=== PATIENT | female | born 1980 | race Caucasian/White ===

== ENCOUNTER 2017-02-21 10:28 | Emergency (ER) | payer SELFPAY ==
[~2017-02-21] VITALS: Ht 157.5 cm; Wt 60.3 kg
[~2017-02-21 10:28] MED LIST: KEFLEX500 MG PO; NAPROSYN500 MG PO; PERCOCET 5/31 TABLET PO
[2017-02-21 11:17] LABS: EOSINOPHIL COUNT 0.1 K/uL (0-0.3); HEMATOCRIT 38.1 % (36.0-46.0); IMMATURE GRANULOCYTE (%) 0.4 % (0.0-0.7); INSTRUMENT ABS NEUTROPHIL CT 2.3 K/uL; LYMPHOCYTE COUNT 1.7 K/uL (1.0-2.8); MCH 30.4 PG (29.0-34.0); MCHC 34.9 G/DL (30.0-36.0); MEAN PLAT.VOLUME 10.8 uM^3 (9.5-12.4); MONOCYTE (%) 9.3 % (3-12); MONOCYTE COUNT 0.4 K/uL (0-0.8); NEUTROPHIL (%) 50.3 % (45-76); NEUTROPHIL COUNT 2.3 K/uL (1.8-6.4); PLATELET COUNT 156 K/uL (156-360); RBC DIS.WIDTH-SD 38.9 % (39-53); RED BLOOD COUNT 4.38 M/uL (3.80-5.20); WHITE BLOOD COUNT 4.6 K/uL (4.1-10.2)
[2017-02-21 11:24] LABS: CHLORIDE 109 mEq/L (99-109); POTASSIUM 3.7 mEq/L (3.7-5.4); SODIUM 138 mEq/L (136-147)
[2017-02-21 11:26] LABS: GLUCOSE 74 mg/dL (70-99)
[2017-02-21 11:28] LABS: ANION GAP 6 MEQ/L (2-14)
[2017-02-21 11:30] LABS: GFR ESTIMATE (CALCULATED) > 59 mL/min/
[2017-02-21 11:31] LABS: UREA NITROGEN (BUN) 6 mg/dL (9-23)
[2017-02-21 11:58] LABS: QUANTITATIVE HCG 25156.6 MIU/ML
[2017-02-21 14:54] VITALS: BP 127/83
== END 2017-02-21 14:55 | disposition home or self-care (01) ==
LOC: EME 10:28
PROVIDERS: Emergency Medicine
DX: Z32.01 Encounter for pregnancy test, result positive (principal); Z3A.01 Less than 8 weeks gestation of pregnancy; Z98.51 Tubal ligation status; F17.200 Nicotine dependence, unspecified, uncomplicated; Z88.6 Allergy status to analgesic agent
CPT/HCPCS: 76801; 80048; 84702; 85025; 99281; 99283

== ENCOUNTER → 2017-07-17 | Outpatient (CLI) | payer OTHER ==
[~2017-07-17] VITALS: Ht 157.5 cm; Wt 70.3 kg
[~2017-07-17] MED LIST changes: +FLINTSTONES CO1 EAC1 PO
[2017-07-17 11:04] VITALS: BP 119/74
== END | disposition home or self-care (01) ==
LOC: IVINF 07-16 11:00
DX: O09.899 Supervision of other high risk pregnancies, unspecified trimester (principal); Z3A.00 Weeks of gestation of pregnancy not specified; Z67.91 Unspecified blood type, Rh negative
CPT/HCPCS: 36415; 86850; 86900; 86901; 96372; J2790

== ENCOUNTER 2017-09-04 08:44 | Outpatient (CLI) | payer OTHER ==
[2017-09-04 09:03] VITALS: BP 125/72
[2017-09-04 10:10] LABS: APPEARANCE SL.HAZY ((CLEAR)); BILIRUBIN NEGATIVE; BLOOD SMALL; COLOR YELLOW ((YELLOW)); GLUCOSE (STRIP) NEGATIVE; KETONES NEGATIVE; LEUKOCYTES TRACE; NITRITE NEGATIVE; PROTEIN (STRIP) NEGATIVE; SPECIFIC GRAVITY 1.014 (1.000-1.030); UROBILINOGEN 0.2 MG/DL (0.2-1.0)
[2017-09-04 10:16] LABS: BACTERIA RARE /HPF; EPITHELIAL CELLS 2+ /HPF; MUCUS TRACE /LPF; RED BLOOD CELLS 0-5 /HPF (0-5); UCUL ADDED? NO; WHITE BLOOD CELLS 0-5 /HPF (0-5)
[2017-09-04 10:28] LABS: AMPHETAMINE NEGATIVE (500 ng/mL); BARBITURATES NEGATIVE (200 ng/mL); BENZODIAZEPINES NEGATIVE (150 ng/mL); BUPRENORPHINE NEGATIVE (10 ng/mL); COCAINE NEGATIVE (150 ng/mL); METHADONE NEGATIVE (200 ng/mL); METHAMPHETAMINE NEGATIVE (500 ng/mL); OPIATES (MORPHINE) NEGATIVE (100 ng/mL); OXYCODONE NEGATIVE (100 ng/mL); PHENCYCLIDINE NEGATIVE (25 ng/mL); PROPOXYPHENE NEGATIVE (300 ng/mL); THC CANNABINOIDS NEGATIVE (50 ng/mL); TRICYCLIC ANTIDEPRESSANTS NEGATIVE (300 ng/mL)
[2017-09-04 13:09] VITALS: BP 124/62
[2017-09-04 21:33] LABS: CANDIDA DNA PROBE NEGATIVE; GARDNERELLA DNA PROBE NEGATIVE; TRICHOMONAS DNA PROBE NEGATIVE
== END 2017-09-04 14:25 | disposition home or self-care (01) ==
LOC: LDRP-OP → 2WEST 08:45 → LDRP-OP 22:46
PROVIDERS: Advanced Practice Midwife
DX: O60.03 Preterm labor without delivery, third trimester (principal); Z3A.34 34 weeks gestation of pregnancy
CPT/HCPCS: 59025; 81003; 87086; 87480; 87510; 87660; G0378; J0702; J7120

== ENCOUNTER 2017-09-05 08:42 | Outpatient (CLI) | payer OTHER ==
[2017-09-05 08:49] VITALS: BP 116/70
== END 2017-09-05 10:33 | disposition home or self-care (01) ==
LOC: LDRP-OP 08:42 → 2WEST 08:43 → LDRP-OP 11-17 14:29
DX: O60.03 Preterm labor without delivery, third trimester (principal); Z3A.34 34 weeks gestation of pregnancy
CPT/HCPCS: 59025; 87086; 87480; 87510; 87660; G0378; J0702

== ENCOUNTER 2017-10-07 08:16 | Inpatient (IN) | payer OTHER ==
[~2017-10-07] VITALS: Ht 157.5 cm; Wt 82.1 kg
[2017-10-07] VITALS (33 sets, daily range): BP systolic 105–163; BP diastolic 58–102
[2017-10-07 10:11] LABS: BASOPHIL (%) 0.1 % (0-1); EOSINOPHIL (%) 0.4 % (0-5); HEMATOCRIT 28.7 % (36.0-46.0); HEMOGLOBIN 9.3 G/DL (11.9-15.5); IMMATURE GRANULOCYTE (%) 1.4 % (0.0-0.7); LYMPHOCYTE (%) 20.9 % (15-42); LYMPHOCYTE COUNT 1.5 K/uL (1.0-2.8); MCH 27.1 PG (29.0-34.0); MCHC 32.4 G/DL (30.0-36.0); MCV 83.7 FL (83-99); MONOCYTE (%) 7.1 % (3-12); MONOCYTE COUNT 0.5 K/uL (0-0.8); NEUTROPHIL (%) 70.1 % (45-76); PLATELET COUNT 199 K/uL (156-360); RBC DIS.WIDTH-CV 13.8 % (11.8-14.6); RBC DIS.WIDTH-SD 41.9 % (39-53); RED BLOOD COUNT 3.43 M/uL (3.80-5.20); WHITE BLOOD COUNT 7.2 K/uL (4.1-10.2)
[2017-10-07 10:36] LABS: AMPHETAMINE NEGATIVE (500 ng/mL); BARBITURATES NEGATIVE (200 ng/mL); BENZODIAZEPINES NEGATIVE (150 ng/mL); BUPRENORPHINE NEGATIVE (10 ng/mL); COCAINE NEGATIVE (150 ng/mL); METHADONE NEGATIVE (200 ng/mL); METHAMPHETAMINE NEGATIVE (500 ng/mL); OPIATES (MORPHINE) NEGATIVE (100 ng/mL); OXYCODONE NEGATIVE (100 ng/mL); PHENCYCLIDINE NEGATIVE (25 ng/mL); PROPOXYPHENE NEGATIVE (300 ng/mL); THC CANNABINOIDS NEGATIVE (50 ng/mL); TRICYCLIC ANTIDEPRESSANTS NEGATIVE (300 ng/mL)
[2017-10-07 13:00] LABS: ALBUMIN 3.2 G/DL (3.2-4.8); ALKALINE PHOSPHATASE 173 IU/L (3-129); ALT (GPT) 11 IU/L (3-49); AST (GOT) 16 IU/L (2-34); CHLORIDE 105 MEQ/L (99-109); CREATININE 0.5 MG/DL (0.6-1.3); GFR ESTIMATE (CALCULATED) > 59 mL/min/; GLUCOSE 85 mg/dL (70-99); LACTATE DEHYDROGENASE 202 IU/L (20-246); POTASSIUM 4.1 MEQ/L (3.7-5.4); SODIUM 134 MEQ/L (136-147); TOTAL BILIRUBIN 0.4 MG/DL (0.0-1.0); TOTAL PROTEIN 5.7 G/DL (6.4-8.3); UREA NITROGEN (BUN) 6 mg/dL (9-23); URIC ACID 4.4 mg/dL (3.1-9.2)
[2017-10-07 14:35] LABS: UR CREATININE CONCENTRATION 47.3 MG/DL
[2017-10-08] VITALS (8 sets, daily range): BP systolic 116–133; BP diastolic 64–85
[2017-10-08 12:17] LABS: HEMATOCRIT 24.1 % (36.0-46.0); HEMOGLOBIN 7.8 G/DL (11.9-15.5); MCH 27.3 PG (29.0-34.0); MCHC 32.4 G/DL (30.0-36.0); MCV 84.3 FL (83-99); PLATELET COUNT 200 K/uL (156-360); RBC DIS.WIDTH-CV 14.1 % (11.8-14.6); RBC DIS.WIDTH-SD 43.2 % (39-53); RED BLOOD COUNT 2.86 M/uL (3.80-5.20); WHITE BLOOD COUNT 17.2 K/uL (4.1-10.2)
[2017-10-09 05:52] LABS: BASOPHIL (%) 0.1 % (0-1); EOSINOPHIL (%) 0 % (0-5); HEMATOCRIT 24.5 % (36.0-46.0); HEMOGLOBIN 7.9 G/DL (11.9-15.5); IMMATURE GRANULOCYTE (%) 0.6 % (0.0-0.7); LYMPHOCYTE (%) 7.7 % (15-42); LYMPHOCYTE COUNT 1.2 K/uL (1.0-2.8); MCH 27.1 PG (29.0-34.0); MCHC 32.2 G/DL (30.0-36.0); MCV 84.2 FL (83-99); MONOCYTE (%) 4.4 % (3-12); MONOCYTE COUNT 0.7 K/uL (0-0.8); NEUTROPHIL (%) 87.2 % (45-76); NEUTROPHIL COUNT 13.8 K/uL (1.8-6.4); PLATELET COUNT 182 K/uL (156-360); RBC DIS.WIDTH-SD 42.9 % (39-53); RED BLOOD COUNT 2.91 M/uL (3.80-5.20); WHITE BLOOD COUNT 15.8 K/uL (4.1-10.2)
[2017-10-10 07:07] LABS: HEMATOCRIT 21.6 % (36.0-46.0); MCH 26.7 PG (29.0-34.0); MCHC 31.5 G/DL (30.0-36.0); MCV 84.7 FL (83-99); PLATELET COUNT 204 K/uL (156-360); RBC DIS.WIDTH-CV 13.9 % (11.8-14.6); RBC DIS.WIDTH-SD 42.7 % (39-53); RED BLOOD COUNT 2.55 M/uL (3.80-5.20); WHITE BLOOD COUNT 10.7 K/uL (4.1-10.2)
[2017-10-10 07:10] LABS: HEMOGLOBIN 6.8 G/DL (11.9-15.5)
[2017-10-10 11:48] VITALS: BP 143/81
[2017-10-10 15:20] VITALS: BP 141/77
[2017-10-10 19:37] VITALS: BP 139/76
[2017-10-10 23:13] VITALS: BP 150/75
[2017-10-11 07:15] VITALS: BP 138/79
[2017-10-11 14:36] VITALS: BP 145/93
[2017-10-11 16:43] VITALS: BP 147/78
[2017-10-11 19:52] VITALS: BP 134/81
[2017-10-11 23:00] VITALS: BP 142/87
[2017-10-11 23:02] VITALS: BP 142/86
[2017-10-12 02:41] VITALS: BP 151/94
[2017-10-12 02:42] VITALS: BP 143/87
[2017-10-12] MEDS ORDERED: ENDOCET 5-3251 EACH PO (11:35)
[2017-10-12] MEDS ORDERED: MOTRIN600 MG PO (11:35)
[2017-10-12] MEDS ORDERED: DOCUSATE SODIU100 MG PO (11:35)
[2017-10-12] MEDS ORDERED: LABETALOL HCL200 MG PO (11:35)
[2017-10-12] MEDS ORDERED: MYLICON,MYLANTA80 MG PO (11:35)
== END 2017-10-12 12:19 | disposition home or self-care (01) | DRG 765 ==
LOC: LDRP-OP 08:16 → 2WEST 08:17 → LDRP-OP 10:17 → 2WEST 10-08 06:57 → LDRP-OP 11-17 12:01
PROVIDERS: Advanced Practice Midwife; Obstetrics & Gynecology; Obstetrics & Gynecology Obstetrics
DX: O62.0 Primary inadequate contractions (principal); O33.9 Maternal care for disproportion, unspecified; O13.4 Gestational [pregnancy-induced] hypertension without significant proteinuria, complicating childbirth; O99.02 Anemia complicating childbirth; D62 Acute posthemorrhagic anemia; D50.9 Iron deficiency anemia, unspecified; O99.334 Smoking (tobacco) complicating childbirth; F17.200 Nicotine dependence, unspecified, uncomplicated; O99.344 Other mental disorders complicating childbirth; O99.354 Diseases of the nervous system complicating childbirth; K91.89 Other postprocedural complications and disorders of digestive system; K56.7 Ileus, unspecified; Z30.2 Encounter for sterilization; Z37.0 Single live birth; Z3A.39 39 weeks gestation of pregnancy; F41.9 Anxiety disorder, unspecified; O99.214 Obesity complicating childbirth; E66.9 Obesity, unspecified; Z68.33 Body mass index [BMI] 33.0-33.9, adult; G43.909 Migraine, unspecified, not intractable, without status migrainosus
CPT/HCPCS: 74019; 74174; 80053; 82570; 83030; 83615; 84156; 84550; 85025; 85027; 86850; 86870; 86900; 86901; 86905; 86920; 88302; 88307; C1755; G0378; J0456; J0595; J0690; J1885; J2250; J2274; J2405; J2765; J2790; J3010; J7060; J7120; Q0169